=== PATIENT | male | born 1940 ===

== ENCOUNTER 2025-07-28 06:50 | Emergency (ER) | payer MEDICARE, SELFPAY ==
--- NOTE | ~2025-07-28 | XR_ITS ---
CLINICAL HISTORY: constipation, abd discomfort 1 view abdomen Comparison: None provided Findings: No pneumoperitoneum or pneumatosis. No abnormal calcifications. No acute fractures. IMPRESSION: The bowel gas pattern is within normal limits This document has been electronically signed by: Terrenec Briscoe MD on 07/28/2025 08:45:25
[2025-07-28 06:54] VITALS: BP 120/78; PULSE 64; O2SAT 97
[2025-07-28 06:57] VITALS: BP 127/70; PULSE 63; RESP 18; TEMP 36.6; O2SAT 98; BMI 27.0
--- OUTSIDE RECORDS SUMMARY | 2025-07-28 07:38 | XMS_ITS | Clinical Summary ---
Author Organization [facility] Address [address] [place] [address] Phone Care Team Providers Care Water Resource Engineering Specialist Name Role Phone Chidi Ingram MD Primary Care Provider [phone] Allergies No known active allergies Medications metFORMIN (GLUCOPHAGE) 500 mg tabletIndications: Type 2 diabetes mellitus without complication, unspecified whether intermediate insulin use ([facility] V24, [facility] V28) TAKE 1 TABLET BY MOUTH TWICE DAILY FOR BLOOD SUGAR 180 tablet 0 Active lisinopril-hydroCH LOROthiazide (PRINZIDE,ZESTORET IC) 20-12.5 mg per tabletIndications: Hypertension, unspecified type Take 1 tablet by mouth once daily 90 tablet 0 Active aspirin 81 mg chewable tablet Chew 1 tablet (81 mg total) 1 (one) time each day. Active dorzolamide (TRUSOPT) 2 % ophthalmic solution 1 drop 3 (three) times a day. Active moxifloxacin (VIGAMOX) 0.5 % ophthalmic solution 1 drop 3 (three) times a day. Active ketorolac (ACULAR) 0.5 % ophthalmic solution 1 drop 4 (four) times a day. Active latanoprost (XALATAN) 0.005 % ophthalmic solution 1 drop at bedtime. Active timolol (TIMOPTIC) 0.5 % ophthalmic solution Administer 1 drop into both eyes 2 (two) times a day. 4 Active timolol (TIMOPTIC) 0.5 % ophthalmic solution Instill 1 drop into each eye twice daily 5 mL 1 12/15/2024 8:56 AM EST 4 Active nitroglycerin (NITROSTAT) 0.[address] 1 tablet (0.4 mg total) under the tongue every 5 (five) minutes if needed for chest pain. 25 each 01/19/2025 2:51 PM EST 5 Active sertraline (ZOLOFT) 100 mg tablet Take 1 tablet (100 mg total) by mouth 1 (one) time each day. 90 tablet 1 03/29/2025 12:59 PM EDT 5 Active atorvastatin (LIPITOR) 40 mg tabletIndications: Hyperlipidemia, unspecified hyperlipidemia type Take 1 tablet (40 mg total) by mouth 1 (one) time each day. 90 tablet 1 03/07/2025 1:53 PM EDT 5 Active isosorbide mononitrate (IMDUR) 30 mg 24 hr tablet Take 1 tablet (30 mg total) by mouth 1 (one) time each day. Do not crush or chew. 90 each 1 03/07/2025 1:53 PM EDT 5 Active metFORMIN (GLUCOPHAGE) 500 mg tablet Take 1 tablet by mouth twice daily for blood sugar 180 tablet 1 03/29/2025 12:59 PM EDT 5 Active rOPINIRole (REQUIP) 1 mg tabletIndications: Restless leg Take 1 tablet (1 mg total) by mouth 1 (one) time each day. 90 tablet 1 03/29/2025 12:59 PM EDT 5 Active lisinopril-hydroCH LOROthiazide (PRINZIDE,ZESTORET IC) 20-12.5 mg per tablet Take 1 tablet by mouth once daily 90 tablet 3 03/07/2025 1:53 PM EDT 5 Active dorzolamide (TRUSOPT) 2 % ophthalmic solution INSTILL 1 DROPS INTO THE LEFT EYE THREE TIMES DAILY 10 mL 3 03/29/2025 12:59 PM EDT 5 Active latanoprost (XALATAN) 0.005 % ophthalmic solution instill 1 drop by ophthalmic route every day into left eye in the evening 7.5 mL 3 03/29/2025 12:59 PM EDT 5 Active timolol (TIMOPTIC) 0.5 % ophthalmic solution instill 1 drop 2 times daily in the left eye 5 mL 3 03/29/2025 12:59 PM EDT 5 Active amLODIPine (NORVASC) 5 mg tabletIndications: Essential hypertension, benign Take 1 tablet (5 mg total) by mouth 1 (one) time each day. 90 each 1 5 Active omeprazole (PriLOSEC) [address] capsule Take 1 capsule (40 mg total) by mouth 1 (one) time each day. 90 capsule 1 5 Active Active Problems Problem Noted Date Diagnosed Date Acute bacterial sinusitis 01/19/2025 Assessment & Plan (01/19/2025 2:30 PM EST): Prescription for Augmentin sent to pharmacy. BMI 30.0-30.9,adult 11/21/2024 Adult general medical exam 11/21/2024 Dyslipidemia associated with type 2 diabetes mellitus ([facility] V24, [facility] V28) 11/20/2024 Cerebrovascular accident ([facility] V24, [facility] V 28) 05/16/2024 Overview (11/21/2024): Hx of CVA in October 23 1982. 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 Had heat stroke about 20 years ago. Assessment & Plan (05/16/2024 11:18 AM EDT): Hx of CVA in October 23 1982. 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 Had heat stroke about 20 years ago. Continue aspirin 81mg daily Continue atorvastatin 40mg daily Atherosclerosis of coronary artery bypass graft 10/17/2020 Assessment & Plan (05/16/2024 11:17 AM EDT): Chronic stable Due for followup in August but with concern for insurance issues if unable to continue at current cardiology office will place referral to [facility]. Depressive disorder 10/17/2020 Assessment & Plan (01/19/2025 2:34 PM EST): Increased isolation. This does correlate with sertraline noncompliance. Refill sent to pharmacy today. 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 Patient placed on Augmentin for his sinuses. In addition we will use prednisone to help with inflammation. If symptoms persist would suggest follow-up with research study assistant and/or ENT. Family history of malignant neoplasm of colon Stage 3 chronic kidney disease ([facility] V24, [facility] V28) 05/02/2015 Assessment & Plan (05/16/2024 11:17 AM EDT): Was stable on recent laboratory testing. Continue to stay well hydrated and avoid nephrotoxic medications like NSAIDS Chronic alcoholism in remission ([facility] V24, [facility] V28) 04/16/2014 Essential hypertension, benign 03/26/2014 Assessment & Plan (01/19/2025 2:29 PM EST): Blood pressure well-controlled on lisinopril hydrochlorothiazide 20-12.5 and Norvasc 5 mg daily. Assessment & Plan (05/16/2024 11:28 AM EDT): Chronic, controlled Continue amlodipine 5mg daily Continue lisinopril-hydrochlorothiazide 20-12.5mg daily Continue imdur 30mg daily Primary open angle glaucoma 01/19/2012 Chorioretinal scar 12/21/2011 Hyperlipidemia 02/14/2008 Type 2 diabetes mellitus wit hout complication ([facility] [place], [facility] V28) 03/23/2007 Assessment & Plan (01/19/2025 2:33 PM EST): Last office visit 03/2024. Hemoglobin A1c was 6.7% at that time. Compliant with metformin as prescribed. Patient traveling to [place] in the near future. I discussed the need for regular diabetic exams. Family indicates he will schedule an appointment when he returns from vacation. Assessment & Plan (05/16/2024 11:21 AM EDT): Chronic, controlled A1c on 03/22/2024 was 6.7% showing good control microalbumin repeat due, ordered Continue metformin 500mg twice daily Recommend yearly diabetic foot and eye exams Would also recommend cholesterol lowering medication if any other cardiovascular risk factors are present. Sleep apnea 12/25/2004 Assessment & Plan (05/16/2024 11:28 AM EDT): Chronic, stable Using CPAP regularly. No side effects. Sleeping well Resolved Problems Problem Noted Date Diagnosed Date Resolved Date COPD exacerbation ([facility] [place], [facility] V28) 5 11/21/2024 Myositis 02/03/2023 11/21/2024 Allergic rhinitis, unspecified 10/17/2020 11/21/2024 Brachial radiculitis 03/26/2014 025 Nontraumatic intracerebral h emorrhage ([facility] [place], [facility] V28) 03/26/2014 11/21/2024 Immunizations Name Administration Dates Next Due Pneumococcal conjugate 20 va lent (Prevnar 20, PCV 20) 2mo and older 01/19/2025 RSV, bivalent, protein subun it RSVpreF, 0.5mL, Preservative Free (Arexvy) 60yo and older 01/19/2025 Tdap Tetanus diptheria acell ular pertussis (Boostrix; Adacel) 7yo and older 01/19/2025 Zoster recombinant (Shingrix) 19yo and older 05/2025 Surgical History Surgery Date Site/Laterality Comments ROTATOR CUFF REPAIR Left Medical History Medical History Date Comments Stroke ([facility] [place], [facility] [place]) Depression GERD (gastroesophageal reflux disease) Brachial radiculitis 03/26/2014 Nontraumatic intracerebral hemorrhage ([facility] V [facility], [facility] V28) 03/26/2014 COPD exacerbation ([facility] [place], [facility] V28) 04/2025 Allergic rhinitis, unspecified 10/17/2020 Family History Medical History Relation Name Comments Colon cancer Brother Breast cancer Daughter Emphysema Father Relation Name Status Comments Brother Daughter Father Mother Social History Tobacco Use Types Packs/Day Years Used Date Smoking Tobacco: Some Days Cigars Smokeless Tobacco: Never Alcohol Use Standard Drinks/Week Comments Not Currently 0 (1 standard drink = 0.6 oz pur e alcohol) Sex and Gender Information Value Date Recorded Sex Assigned at Not on file Legal Sex Male 7:46 AM EDT Gender Identity Not on file Sexual Orientation Not on file Obstetrics History Last Filed Vital Signs Vital Sign Reading Time Taken Comments Blood Pressure 108/68 01/19/2025 2:03 PM EST Pulse 71 01/19/2025 2:03 PM EST Temperature 37.2 C (99 F) 01/19/2025 2:03 PM EST Respiratory Rate - - Oxygen Saturation 96% 01/19/2025 2:03 PM EST Inhaled Oxygen Concentration - - Weight 70.3 kg (155 lb) 01/19/2025 2:03 PM EST Height 154.9 cm (5' 1 ) 05/16/2024 10:44 AM EDT Body Mass Index 29.29 05/16/2024 10:44 AM EDT Plan of Treatment Health Maintenance Due Date Last Done Comments Diabetes: Annual Foot Exam 1950 Diabetes: Annual Retina Eye Exam 1950 Hepatitis A Vaccines (1 of 2 - Risk 2-dose series) 1958 Falls Risk Assessment 04/05/2024 Medicare Annual Wellness Visit 04/05/2024 Social Influencers of Health Screening 04/05/2024 Diabetes: Blood Sugar Control Test (HGBA1C) 09/22/2024 03/22/2024, 03/22/2024, 11/19/2022, Additional history exists Depression Screening 11/15/2024 Zoster Vaccines (2 of 2) 03/16/2025 01/19/2025 Diabetes: Annual Urine Albumin-Creatinine Ratio (uACR) 05/16/2025 05/16/2024, 02/18/2022, 02/18/2022, Additional history exists COVID-19 Vaccine (6 - Pfizer risk season) 2025 07/29/2024, 09/12/2022, 09/22/2021, Additional history exists Influenza Vaccine (#1) 2025 Diabetes: Annual GFR (Glomerular Filtration Rate) 08/17/2025 08/17/2024, 08/17/2024, 04/11/2024, Additional history exists Hypertension/CHF/CAD Annual BMP Blood Test 08/17/2025 08/17/2024, 08/17/2024, 04/11/2024, Additional history exists Cholesterol Screening (Lipid Panel) 10/17/2025 10/17/2020, 10/17/2020 DTaP,Tdap,and Td Vaccines (2 - Td or Tdap) 01/19/2035 01/19/2025 Pneumococcal Vaccine: 50+ Years Completed 01/19/2025 RSV Immunization Adult Patients Completed 01/19/2025 HIB Vaccines Aged Out No longer eligi ble based on patient's age to complete this topic HPV Vaccines Aged Out No longer eligi ble based on patient's age to complete this topic Hepatitis B Vaccines Aged Out No long er eligible based on patient's age to complete this topic IPV Vaccines Aged Out No longer eligi ble based on patient's age to complete this topic MMR Vaccines Aged Out No longer eligi ble based on patient's age to complete this topic Meningococcal ACWY Vaccine Aged Out N o longer eligible based on patient's age to complete this topic Meningococcal B Vaccine Aged Out No l onger eligible based on patient's age to complete this topic RSV Immunization Patients Under 20 months Aged Out No longer eligible based on patient's age to complete this topic Varicella Vaccines Aged Out No longer eligible based on patient's age to complete this topic Procedures Procedure Name Priority Date/Time Associated Diagnosis Comments MICROALBUMIN CREATININE URINE RATIO Routine 05/16/2024 11:56 AM EDT Type 2 diabetes mellitus without complication, without long-term current use of insulin ([facility] V24, [facility] V28) from Last 3 Months or Most Recently Relevant to Health Maintenance Results * Microalbumin creatinine urine ratio (05/16/2024 11:56 AM EDT) Creatinine, Urine 61.2 mg/dL LAB CHEMISTRY METHOD 05/16/2024 6:19 PM EDT [facility] Microalb, Ur <7.0 mg/L LAB CHEMISTRY METHOD 05/16/2024 6:19 PM EDT [facility] Microalb/Creat Ratio <11 0 - 29 mg/g creat LAB CHEMISTRY METHOD 05/16/2024 6:19 PM EDT [facility] Comment:An accurate ratio ca nnot be calculated due to the urine microalbumin or urine creatinine concentration being below the detectable limit. Please consider recollecting specimen as a first morning void. Urine Urine specimen from urethra / Unknown Non-blood Collection / Unknown 05/16/2024 11:56 AM EDT 05/16/2024 11:56 AM EDT us Chidi Ingram MD LAB URINE ORDERABLES Final Re sult [facility] [address] [place] [address] from Last 3 Months or Most Recently Relevant to Health Maintenance Insurance [employer] Care Teams Water Resource Engineering Specialist Relationship Specialty Start Date End Date Chidi Ingram MD [address] [place] [id number] PCP - General Family Medicine 05/16/24
--- NOTE | 2025-07-28 08:26 | ED.GENADULT ---
HPI - General Adult General Chief complaint: Abdominal Pain Stated complaint: Veins in L arm and head increased in size Time Seen by Provider: 07/28/25 08:25 Source: patient and family () Mode of arrival: ambulatory Limitations: no limitations History of Present Illness ED Provider: CATHERINE DOWD PA-C HPI narrative: 84 yo M with PMH of CVA, GERD, HTN, HLD presents with to ED fr concerns of constipation x days. Reports last BM 2 days ago. Stool is normally formed when he does have BM. He tried milk of magnesia yesterday w/o improvement. Denies abd pain, melena, n/v, fever or chills. Able to pass flatus. No changes to dietary habits. GERD is well-controlled with meds. Patient is hydrating and tolerating PO intake. Patient admits to moving here from [place] 3 months ago. He is currently establishing care w/ primary at [facility]. All of his home medications were reently filled by previous provider. Related Data Previous Rx's ?Medication ?Instructions ?Recorded docusate sodium 100 mg capsule 100 mg PO BID 10 days #20 caps 07/28/25 (Colace) polyethylene glycol 3350 17 gram 17 g PO DAILY PRN constipation 4 07/28/25 oral powder packet (Miralax) days #30 ea Allergies Allergy/AdvReac Type Severity Reaction Status Date / Time No Known Allergies Allergy Verified 07/28/25 06:59 Review of Systems Review of Systems: Yes all other systems are reviewed and are negative PMFSH Past Medical History Attestation statement: The following information was validated with the patient. Source: old records reviewed and nursing notes reviewed Physical Exam ED Vital Signs: Vital Signs - 24 hr 07/28/25 06:57 Temperature 97.9 F Pulse Rate 63 Respiratory Rate 18 Blood Pressure 127/70 Pulse Oximetry 98 Oxygen Delivery Method Room Air BMI result Body Mass Index 27.0 vital signs stable General: Well appearing, in no acute distress. Skin: Warm, dry, intact. No rashes or lesions. Head: Normocephalic, atraumatic. EENT: Hearing is intact b/l. Conjunctiva clear. Sclera is anicteric. PERRLA. EOM intact. Moist mucous membranes.? Neck: Supple without LAD Cardiac: Chest wall symmetric. RRR Lungs: Normal respiratory effort without accessory muscle use. CTA bilaterally Abdomen: Soft, non-tender, non-distended. No rebound tenderness or guarding. Positive BS x4. Ext: Upper and lower extremities atraumatic, without tenderness, deformity, swelling or erythema Neuro: AOx3. Normal speech. Ambulating with steady gait Course Course Course Narrative: CBC without leukocytosis or left shift. Normocytic anemia, no priors to compare to, H&H above transfusion threshold. Chemistry without acute electrolyte abnormality requiring intervention. BUN mildly elevated to 28, normal creatinine. Encouraged oral hydration. Urine without infection. KUB shows patient is constipated. > he feels well, no complaints. will start him on bowel regimen. he has f/u with new PCP soon. Patient has remained stable throughout ED visit today. Discussed worrisome signs and symptoms and when to return to the ED. All questions answered at this time. Patient is agreeable with disposition and stable for discharge. Medical Decision Making Medical Decision Making [facility] Narrative: This is an 84 year old male presenting with symptoms consistent with constipation.? Differential diagnosis includes constipation, electrolyte abnormality, dehydration. Presentation not consistent with acute bowel obstruction caused by tumor, stricture, hernia, adhesion, volvulus or fecal impaction. Low suspicion for etiology related to new medications including opiates, antipsychotics, anticholinergics, antacids, or antihistamines. Presentation not consistent with acute anorectal disorders. Low suspicion for chronic causes of constipation including hypothyroidism. Presentation not consistent with other acute, emergent causes of constipation at this time. Plan: supportive care, KUB, basic labs to assess electrolytes? Differential Diagnosis Differential Diagnoses: The differential diagnosis associated with the presentation includes as above. Admission/Observation not indicated. Lab Data [facility] Lab Attestation statement: I reviewed the patient's lab results. as above. 07/28/25 08:11 07/28/25 08:11 Labs: Lab Results 07/28/25 07/28/25 Range/Units 08:11 08:19 WBC 9.9 (4.8-10.8) X10*3/uL RBC 3.91 L (4.60-5.80) X10*6/uL Hgb 11.8 L (14.0-18.0) g/dl Hct 35.6 L (42.0-52.0) % MCV 91.0 (80.0-98.0) fL MCH 30.2 (27.0-33.0) pg MCHC 33.1 (31.0-36.0) g/dl RDW 13.3 (11.0-16.0) % Plt Count 211 (160-400) X10*3/uL MPV 8.9 L (9.4-12.4) fL Immature Gran % (Auto) 0.4 (0.0-0.4) % Neut % (Auto) 54.6 (45-73) % Lymph % (Auto) 20.7 (20-40) % [place] % (Auto) 7.4 (2-11) % Eos % (Auto) 16.3 H (0-4) % Baso % (Auto) 0.6 (0-2) % Lymph # (Auto) 2.1 (1.2-4.9) X10*3/uL [place] # (Auto) 0.7 (0.1-1.2) X10*3/uL Eos # (Auto) 1.6 H (0.0-0.4) X10*3/uL Baso # (Auto) 0.1 (0.0-0.2) X10*3/uL Abs Immat Gran (auto) 0.04 H (0.00-0.03) X10*3/uL Absolute Neuts (auto) 5.4 (2.0-8.3) x10*3/uL Absolute Nucleated RBC 0.020 H (0.0-0.012) X10*3/uL Nucleated RBC % (auto) 0.2 (0.0-0.2) /100WBC Sodium 138 (135-145) mmol/L Potassium 4.1 (3.3-5.1) mmol/L Chloride 102 (96-108) mmol/L Carbon Dioxide 27 (22-29) mmol/L Anion Gap 13 (12-20) BUN 28 H (9-16) mg/dL Creatinine 1.32 (0.5-1.4) mg/dL Estim Creat Clear Calc 34.4 Estimated GFR 52 Random Glucose 95 (60-115) mg/dL Calcium 9.3 (8.4-10.2) mg/dL Total Bilirubin 0.3 (0.0-1.0) mg/dL Direct Bilirubin 0.1 (0.0-0.5) mg/dL AST 19 (5-37) U/L ALT 12 (0-40) U/L Alkaline Phosphatase 53 (39-117) U/L Total Protein 7.0 (6.5-8.0) g/dL Albumin 4.2 (3.5-5.0) g/dL Lipase 28 (8-78) U/L Urine Color Yellow Urine Appearance Clear Urine pH 5.5 (5.0-9.0) Ur Specific [place] 1.025 (1.005-1.025) Urine Protein 30 (1+) H (Neg-Trace) mg/dL Urine Glucose (UA) Negative (Negative) mg/dL Urine Ketones Trace (Negative) mg/dL Urine Blood Negative (Negative) Urine Nitrite Negative (Negative) Ur Leukocyte Esterase Negative (Negative) Urine RBC 0-2 (0-2) /HPF Urine WBC 0-5 (0-5) /HPF Ur Squamous Epith Cells 0-2 (0-2) /HPF Urine Bacteria None Seen (None Seen) Hyaline Casts 0-2 (0-2) /LPF Independent Interpretation I performed an independent interpretation of an: Plain X-Ray Interpretation: KUB showing mild constipation, no obstruction Radiology Impression Discussion of test interpretation with radiology: I have reviewed the radiologist's reading. Radiologist Impression: Date of Service: 07/28/25 Procedure(s): XR KUB Accession Number(s): [id number] cc: Bobby Herbert MD; Physician,None ~ Reason for Exam: constipation, abd discomfort CLINICAL HISTORY: constipation, abd discomfort 1 view abdomen Comparison: None provided Findings: No pneumoperitoneum or pneumatosis. No abnormal calcifications. No acute fractures. IMPRESSION: The bowel gas pattern is within normal limits This document has been electronically signed by: Terrence Briscoe MD on 07/28/2025 08:45:25 Prescription Management I considered prescription management with: Other (MiraLax, Colace) Social Determinants Patient?s care significantly limited by Social Determinants of Health including: Other Social Determinant of Health Critical Care Time Critical Care Time Critical Care Time: No Discharge Plan Discharge Clinical Impression: Constipation Patient Disposition: Home, Self-Care Instructions: Constipation (ED) Additional Instructions: Your lab work up today is unremarkable. Your kidney function is a little elevated however we have no prior labs to compare to. Please make sure that you are staying well hydrated. Your urine is not infected. Your imaging shows that you are constipated. See home care instructions. There is no evidence of obstruction. I recommend using stool softeners such as colace 100 mg twice daily. In addition, take over the counter miralax 2-3 times daily until you begin having multiple large volume bowel movements. Follow up with your doctor in 2 weeks. If you do not have on, a referral has been provided to you. Please call them to establish care. They will not call you. Return with new or worsening symptoms. In the case of an emergency call 911. Prescriptions: New docusate sodium [Colace] 100 mg capsule 100 mg PO BID 10 Days Qty: 20 0RF polyethylene glycol 3350 [Miralax] 17 gram powder in packet 17 g PO DAILY PRN (Reason: constipation) 4 Days Qty: 30 0RF Referrals: [facility] Primary Care, Ted [Provider Group, Internal Medicine] Physician,None [Primary Care Provider, Medical] Interventions: ED Discharge Assessment Last Done: 07/28/25 09:50 Discharge Date/Time: 07/28/25 09:50 Print Language: Romanian
[2025-07-28 08:31] LABS: MANUAL DIFF FLAG NO
[2025-07-28 08:32] LABS: Appearance Urine Clear; Glucose Urine UA Negative (Negative); PH 5.5 (5.0-9.0); Specific Gravity - Urine 1.025 (1.005-1.025); UMIC TRIGGER UACC YES
[2025-07-28 08:32] LABS: Hematocrit 35.6 % (42.0-52.0); Hemoglobin 11.8 g/dl (14.0-18.0); Imm Gran Abs Auto 0.04 X10*3/uL (0.00-0.03); Imm Gran Pct Auto 0.4 % (0.0-0.4); Lymphocytes Absolute Auto 2.1 X10*3/uL (1.2-4.9); Mean Corpuscular HGB Conc 33.1 g/dl (31.0-36.0); Mean Corpuscular Hemoglobin 30.2 pg (27.0-33.0); Mean Corpuscular Volume 91.0 fL (80.0-98.0); NRBC Abs Auto 0.020 X10*3/uL (0.0-0.012); NRBC Pct Auto 0.2 /100WBC (0.0-0.2); Platelet Count 211 X10*3/uL (160-400); Red Blood Count 3.91 X10*6/uL (4.60-5.80); White Blood Count 9.9 X10*3/uL (4.8-10.8)
[2025-07-28 08:47] LABS: Alanine Aminotransferase 12 U/L (0-40); Albumin Level 4.2 g/dL (3.5-5.0); Alkaline Phosphatase 53 U/L (39-117); Anion Gap 13 (12-20); Aspartate Amino Transferase 19 U/L (5-37); Blood Urea Nitrogen 28 mg/dL (9-16); Calcium 9.3 mg/dL (8.4-10.2); Carbon Dioxide 27 mmol/L (22-29); Chloride 102 mmol/L (96-108); Creatinine Clr Calc Pharmacy 34.4; Estimated Glomerular Filt Rate 52; Lipase 28 U/L (8-78); Potassium 4.1 mmol/L (3.3-5.1); Sodium 138 mmol/L (135-145); Total Protein 7.0 g/dL (6.5-8.0)
[2025-07-28 09:47] VITALS: BP 126/74; PULSE 78; RESP 18; TEMP 36.6; O2SAT 98
[2025-07-28 09:50] VITALS: BP 126/74; PULSE 78; RESP 18; TEMP 36.6; O2SAT 98
== END 2025-07-28 09:50 | disposition home or self-care (01) ==
PROVIDERS: Emergency Provider Emergency Medicine
DX: K59.00 Constipation, unspecified (principal); R10.9 Unspecified abdominal pain; I10 Essential (primary) hypertension; K21.9 Gastro-esophageal reflux disease without esophagitis; D50.8 Other iron deficiency anemias
CPT/HCPCS: 36415; 74018; 80048; 80076; 81001; 83690; 85025; 99284

== ENCOUNTER → 2025-07-28 08:15 | Outpatient (BNV) | payer OTHER, SELFPAY | PROVIDERS: Emergency Provider Emergency Medicine; Visit Provider Specialist | DX: K59.00 Constipation, unspecified (principal) | CPT/HCPCS: 74018 ==